=== PATIENT | male | born 1950 | race Caucasian/White ===

== ENCOUNTER 2017-07-13 06:55 | Emergency (ER) | payer OTHER, MEDICARE ==
[2017-07-13 07:03] VITALS: TEMP 98.4
--- NOTE | 2017-07-13 07:13 | EDPHY ---
H & P Stated Complaint: dizzy, chest tighness, left neck pressure and headache- concerned about BP Time Seen by Provider: 07/13/17 07:09 - Medical/Surgical History Hx Asthma: No Hx Chronic Respiratory Disease: No Hx Diabetes: No Hx Cardiac Disease: No Hx Renal Disease: No Hx Cirrhosis: No Hx Alcoholism: No Hx HIV/AIDS: No Hx Splenectomy or Spleen Trauma: No Other PMH: GERD, Hypertension - Social History Smoking Status: Never smoked Constitutional: Initial Vital Signs Temperature (C) 36.9 C 07/13/17 07:00 Heart Rate 71 07/13/17 07:00 Respiratory Rate 20 07/13/17 07:00 Blood Pressure 201/88 H 07/13/17 07:00 O2 Sat (%) 97 07/13/17 07:00 O2 Delivery Mode Room Air Allergies/Adverse Reactions: No Known Allergies Allergy (Unverified 07/13/17 06:56) Home Medications: Medication Instructions Recorded Amlodipine-Atorvast 10-10 mg 07/13/17 Crestor 07/13/17 Doxazosin Mesylate 07/13/17 Esomeprazole Sodium 07/13/17 Losartan Potassium 07/13/17 Metoprolol Succinate 07/13/17 Medical Decision Making - Diagnostics Imaging: Discussed imaging studies w/ front desk person Radiologist, I viewed and interpreted images myself ED Course/Re-evaluation: CHIEF COMPLAINT: Lightheadedness, fluctuating blood pressure HISTORY OF PRESENT ILLNESS: The patient is a 66 y/o male who complains of lightheadedness and fluctuating blood pressure for the past week. He is currently on 4 different blood pressure medications. He was seen by his PCP Thursday for light-headedness and was hypotensive (122/72), which resulted in his PCP cutting his Doxazosin medication in half to 2mg. He has continued to have intermittent light- headedness, fluctuating blood pressure, and feeling hot and sweaty. These symptoms do not occur during exertion.This morning he did not take his Doxazosin , which has exacerbated his symptoms. He has had chest pressure which he associates with GERD. Denies heart catheterization, smoking, diabetes, dyspnea. REVIEW OF SYSTEMS: A 10 point review of systems was performed and is negative with the exception of the elements mentioned in the history of present illness. PHYSICAL EXAM: HR, BP, O2 Sat, RR. Temp noted General Appearance: Alert, well hydrated, appropriate, and non-toxic appearing. Head: Atraumatic without scalp tenderness or obvious injury Eyes: Pupils equal, round, reactive to light and accommodation, EOMI, no trauma , no injection. Ears: Clear bilaterally, no perforation, normal landmarks Nose: Atraumatic, no rhinorrhea, clear. Throat: Mucus membranes moist. Neck: Supple, nontender, no lymphadenopathy. Respiratory: No retractions, no distress, no wheezes, and no accessory muscle use. Lungs are clear to auscultation bilaterally. Cardiovascular: Regular rate and rhythm, no murmurs, rubs, or gallops. Good capillary refill all extremities. Gastrointestinal: Abdomen is soft, nontender, non-distended, no masses, no rebound, no guarding, no peritoneal signs. Musculoskeletal: Normal active ROM of all extremities, atraumatic. Neurological: Alert, appropriate, and interactive. Non-focal neuro. Skin: No rashes, good turgor, no nodules on palpation. Past medical history: GERD, hypertension Past surgical history: Knee replacement in November Family history: Denies Social history: , lives in [place], PCP: Chaitanya Romero DIAGNOSTICS/PROCEDURES/CRITICAL CARE TIME: EKG: The 12 lead EKG was interpreted by myself. Sinus bradycardia. See hard copy and/or "tracemaster" electronic copy for interpretation. Echocardiogram: Preliminary impression, normal. Cardiology over-read pending. DIFFERENTIAL DIAGNOSIS: The differential diagnosis for the patient's light headedness included but was not limited to multiple blood pressure medication side effects, peripheral and central causes of vertigo, orthostatic causes including dehydration, cardiogenic and neurogenic causes, blood loss, and myocardial ischemia. MEDICAL DECISION MAKING: The patient is a 66 y/o male with a history of hypertension who presents with a one week history of intermittent light-headedness and fluctuating blood pressure. He is currently on 4 different medications to manage his blood pressure, without achieving consistent regulation. This is a likely etiology for light headedness. We will rule out cardiogenic causes with ab work, echocardiogram, and EKG. Reassessed patient and discussed results with him. His labs, echocardiogram, and EKG are normal. I have referred him to Dr. Jaquan Hylton, architectural representative, for blood pressure medication management. Return precautions provided. He is comfortable with this plan. - Data Points Laboratory Results: Laboratory Results 07/13/17 07:20 07/13/17 07:20 07/13/17 07/13/17 07/13/17 07:20 07:20 07:20 WBC 5.97 10^3/uL 10^3/uL (3.80-9.50) RBC 4.77 10^6/uL 10^6/uL (4.40-6.38) Hgb 15.8 g/dL g/dL (13.7-17.5) Hct 44.1 % % (40.0-51.0) MCV 92.5 fL fL (81.5-99.8) MCH 33.1 pg pg (27.9-34.1) MCHC 35.8 g/dL g/dL (32.4-36.7) RDW 11.7 % % (11.5-15.2) Plt Count 170 10^3/uL 10^3/uL (150-400) MPV 10.2 fL fL (8.7-11.7) Neut % (Auto) 54.5 % % (39.3-74.2) Lymph % (Auto) 35.3 % % (15.0-45.0) Isabella % (Auto) 6.5 % % (4.5-13.0) Eos % (Auto) 2.0 % % (0.6-7.6) Baso % (Auto) 1.0 % % (0.3-1.7) Nucleat RBC Rel Count 0.0 % % (0.0-0.2) Absolute Neuts (auto) 3.25 10^3/uL 10^3/uL (1.70-6.50) Absolute Lymphs (auto) 2.11 10^3/uL 10^3/uL (1.00-3.00) Absolute Monos (auto) 0.39 10^3/uL 10^3/uL (0.30-0.80) Absolute Eos (auto) 0.12 10^3/uL 10^3/uL (0.03-0.40) Absolute Basos (auto) 0.06 10^3/uL 10^3/uL (0.02-0.10) Absolute Nucleated RBC 0.00 10^3/uL 10^3/uL (0-0.01) Immature Gran % 0.7 % % (0.0-1.1) Immature Gran # 0.04 10^3/uL 10^3/uL (0.00-0.10) D-Dimer 0.36 ug/mLFEU ug/mLFEU (0.00-0.50) Sodium 138 mEq/L mEq/L (134-144) Potassium 3.6 mEq/L mEq/L (3.5-5.2) Chloride 99 mEq/L mEq/L (97-110) Carbon Dioxide 27 mEq/l mEq/l (22-31) Anion Gap 12 mEq/L mEq/L (8-16) BUN 15 mg/dL mg/dL (7-23) Creatinine 1.0 mg/dL mg/dL (0.7-1.3) Estimated GFR > 60 Glucose 117 mg/dL H mg/dL (70-100) Calcium 9.5 mg/dL mg/dL (8.5-10.4) Magnesium 1.9 mg/dL mg/dL (1.6-2.3) Troponin I < 0.012 ng/mL ng/mL (0.000-0.034) NT-Pro-B Natriuret Pep 227 pg/mL H pg/mL (0-125) Departure - Departure Disposition: Home, Routine, Self-Care Clinical Impression: Lightheaded Hypertension Qualifiers: Hypertension type: unspecified Qualified Code(s): I10 - Essential (primary) hypertension Condition: Good Instructions: Hypertension (ED), Lightheadedness (ED) Additional Instructions: 1. Follow up with Dr. Hylton, architectural representative, in the next 1-2 days without fail for blood pressure medication management. 2. Take your current medication as prescribed. 3. Return to the ED for any worsening of symptoms. Referrals: Kj Romero [Primary Care Provider] - As per Instructions Jaquan Hylton MD [Medical Doctor] - As per Instructions Report Scribed for: Jin Ornelas Report Scribed by: Betty Cormier Date of Report: 07/13/17 Time of Report: 07:33
--- NOTE | 2017-07-13 07:22 | CPEKG ---
Heart Rate: 57 RR Interval: 1053 P-R Interval: 168 QRSD Interval: 106 QT Interval: 424 QTC Interval: 413 P Angier: 37 QRS Angier: 3 T Wave Angier: 14 EKG Severity - NORMAL ECG - EKG Impression: SINUS RHYTHM Electronically Signed By: Jin Ornelas 13-Jul-2017 13:20:33
[2017-07-13 07:25] VITALS: RESP 18
[2017-07-13 07:32] LABS: % IMMATURE GRANULYOCYTES 0.7 % (0.0-1.1); ABSOLUTE IMMATURE GRANULOCYTES 0.04 10^3/uL (0.00-0.10); ADD DIFF? NO; ADD MORPH? NO; ADD SCAN? NO; ATYPICAL LYMPHOCYTE FLAG 10 (0-99); FRAGMENT RBC FLAG 0 (0-99); HEMATOCRIT 44.1 % (40.0-51.0); HEMOGLOBIN 15.8 g/dL (13.7-17.5); LEFT SHIFT FLG 0 (0-99); LIPEMIA HEMOLYSIS FLAG 90 (0-99); MEAN CELL HEMOGLOBIN 33.1 pg (27.9-34.1); MEAN CELL HEMOGLOBIN CONCENTR. 35.8 g/dL (32.4-36.7); MEAN CELL VOLUME 92.5 fL (81.5-99.8); MEAN PLATELET VOLUME 10.2 fL (8.7-11.7); PLATELET CLUMPS FLAG 0 (0-99); PLATELET COUNT 170 10^3/uL (150-400); RED BLOOD CELL COUNT 4.77 10^6/uL (4.40-6.38); RED CELL DISTRIBUTION WIDTH 11.7 % (11.5-15.2)
[2017-07-13 07:41] LABS: ANION GAP 12 mEq/L (8-16); CALCIUM 9.5 mg/dL (8.5-10.4); CARBON DIOXIDE 27 mEq/l (22-31); CHLORIDE 99 mEq/L (97-110); GLOMERULAR FILTRATION RATE > 60; GLUCOSE 117 mg/dL (70-100); MAGNESIUM 1.9 mg/dL (1.6-2.3); POTASSIUM 3.6 mEq/L (3.5-5.2); SODIUM 138 mEq/L (134-144)
[2017-07-13 07:53] LABS: TROPONIN I < 0.012 ng/mL (0.000-0.034)
[2017-07-13 08:29] VITALS: BP 163/91; PULSE 57; O2SAT 95
--- NOTE | 2017-07-13 08:53 | ECHO ---
[id number] + + [address] : : [place] [address] : : [phone] + + Adult Echocardiographic Report + -------+ :Name: YAO ARORA WStudy Date: 07/13/2017 07:58 AM BP: 185/95 mmH g : : Hospital Admission Number: [id number] Locati on: ER4: :: 1950 Gender: Male Height: 69 in : :Age: 66 yrs Race: WH Weight: 230 lb : :Reason For Study: Eval LV Fx : : BSA: 2.2 meter s2 : :History: Chest Pain, HTN Crisis : + -------+ MMode/2D Measurements \T\ Calculations IVSd: 1.0 cm LVIDd: 5.6 cm FS: 40.6 % Ao root diam: 3.0 cm LVPWd: 1.2 cm LVIDs: 3.3 cm EDV(Teich): 153.0 ml ACS: 1.7 cm ESV(Teich): 44.8 ml EF(Teich): 70.7 % Normal Measurement Values: + + :LVIDd (3.5-5.7cm) IVSd (0.6-1.1cm) LVPWd (0.6-1.1cm) Aortic Root (2.0-3.7cm)Left Atrium (1.5-4.0cm): :LV Vol(d) (76-115ml) LV Vol(s) (29-48ml) Ejec Fraction (50-65%)PV Yovani (0.6- 1.2m/s) TV Yovani (0.4-1.0m/s) : :MV E Yovani (0.8-1.0m/s)MV A Yovani (0.3-1.0m/s)LVOT Yovani (0.7-1.2m/s) Asc Ao Yovani ( 0.9-1.8m/s) : + + Doppler Measurements \T\ Calculations MV E max yovani: Ao V2 max: LV V1 max: PA V2 max: 60.2 cm/sec 125.0 cm/sec 88.8 cm/sec 73.3 cm/sec MV A max yovani: Ao max P.3 mmHgLV V1 max PG: PA max P.5 cm/sec 3.2 mmHg 2.1 mmHg MV E/A: 1.5 TR max yovani: 263.0 cm/sec TR max P.7 mmHg RAP systole: 5.0 mmHg RVSP(TR): 32.7 mmHg Left Ventricle The left ventricle is normal in size. There is normal left ventricular wall thickness. The left ventricular ejection fraction is normal. There is Doppler evidence for diastolic dysfunction. Ejection Fraction = 71%. The left ventricular wall motion is normal. Right Ventricle The right ventricle is normal in size and function. Atria The left atrial size is normal. Right atrial size is normal. Mitral Valve The mitral valve is normal in structure and function. There is no evidence of mitral valve prolapse. There is no mitral valve stenosis. There is no mitral regurgitation noted. Tricuspid Valve Normal tricuspid valve. No tricuspid regurgitation. Aortic Valve The aortic valve is normal in structure and function. There is no aortic stenosis. There is no aortic insufficiency. Pulmonic Valve The pulmonic valve is normal in structure and function. There is no pulmonic valvular regurgitation. Great Vessels The aortic root is normal size. Pericardium/Pleural There is no pericardial effusion. Conclusion A complete two-dimensional transthoracic echocardiogram was performed (2D, M-mode, Doppler and color flow Doppler). (1) Left ventricular systolic ejection fraction was normal (70-75%) - normal wall motion (2) No left ventricular hypertrophy (3) Diastolic dysfunction was present (4) Normal right ventricular size and function (5) Normal atrial dimensions (6) Grossly normal mitral valve (7) Trileaflet aortic valve without sclerosis or insufficiency (8) Grossly normal tricuspid valve (9) Poor visualization of the pulmonic valve (10) No comparison echocardiogram Final Reading Physician: Brendan Baltazar signed on 07/13/2017 08:51 AM Ordering Physician: Jin Ornelas Performed By: Red Sifuentes, AMANDACS
== END 2017-07-13 08:29 | disposition home or self-care (01) ==
DX: R42 Dizziness and giddiness (principal); I10 Essential (primary) hypertension